=== PATIENT | female | born 1945 | race Hispanic/Latino ===

== ENCOUNTER 2024-11-25 23:55 | Inpatient (IN) | payer SELFPAY ==
[2024-11-25 16:25] VITALS: BP 112/79
[2024-11-25 17:06] LABS: % Basophils 0.5 % (0-2); % Eosinophils 0.1 % (0-6); % Immature Granulocytes 0.4 % (0-0.5); % Lymphocytes 8.7 % (20.5-51.1); % Monocytes 8.7 % (1.7-9.3); % Neutrophils 81.6 % (42.2-75.2); Absolute Basophils 0.1 10^3/uL (0-0.2); Absolute Immature Granulocytes 0.1 10^3/uL (0-0.05); Absolute Lymphocytes 1.8 10^3/uL (1.2-3.4); Absolute Monocytes 1.8 10^3/uL (0.1-0.6); Absolute Neutrophils 16.6 10^3/uL (1.4-6.5); Hematocrit 35.1 % (37.0-47.0); Hemoglobin 11.6 g/dL (12.0-16.0); Mean Corpuscular Hgb 31.1 pg (27.0-31.0); Mean Corpuscular Volume 94.1 fL (81.0-99.0); Mean Platelet Volume 9.8 fL (7.4-10.4); Nucleated Red Blood Cells % 0 %; Platelet Count 256 10^3/uL (130-400); Red Blood Cell Count 3.73 10^6/uL (4.20-5.40); Red Cell Dist. Width 13.2 % (11.5-14.5); White Blood Cell Count 20.3 10^3/uL (4.8-10.8)
[2024-11-25 18:48] VITALS: BMI 28.7
[2024-11-25] MEDS: OMNIPAQUE 50 ML PO (19:00)
[2024-11-25] MEDS: MORPHINE SULFATE 4 MG IV (19:00)
[2024-11-25] MEDS: NSS 1000 IV (19:01)
[2024-11-25 19:08] VITALS: BP 110/53
[2024-11-25 19:24] LABS: Urine Albumin Trace (Neg - Trace); Urine Bilirubin 1+ (Negative); Urine Character Clear (Clear); Urine Color Yellow; Urine Glucose Negative (Negative); Urine Ketone Negative (Negative); Urine Leukocyte Trace (Negative); Urine Nitrite Negative (Negative); Urine Occult Blood 3+ (Negative); Urine Specific Gravity 1.015 (<1.030); Urine Urobilinogen 2+ (Neg - 1+)
[2024-11-25 19:32] LABS: Urine Mucus Moderate
[2024-11-25 19:34] LABS: Urine Calcium Oxalate Crystals Seen
[2024-11-25 19:35] LABS: Urine Bacteria Moderate (Negative)
[2024-11-25 19:40] LABS: ALT (SGPT) 20 U/L (0-35); AST (SGOT) 30 U/L (14-36); Albumin 3.9 g/dl (3.5-5.0); Alkaline Phosphatase 82 U/L (38-126); Blood Urea Nitrogen 19 mg/dl (7-17); Carbon Dioxide 31 mmol/L (22-30); Chloride 93 mmol/L (98-107); Estimated Creatinine Clearance 44 ml/min; Glucose 122 mg/dl (70-99); Potassium 4.2 mmol/L (3.5-5.1); Sodium 132 mmol/L (135-145); Total Bilirubin 1.1 mg/dl (0.2-1.3); Total Protein 6.4 g/dl (6.3-8.2); eGFR 57.31
[2024-11-25 19:41] LABS: Lipase 282 U/L (23-300)
--- NOTE | 2024-11-25 19:54 | ED.GENMED ---
History of Present Illness
<Angelita Avila PA-C - Last Filed: 11/25/24 21:57>
General
Chief Complaint: Abdominal Symptoms
Source: patient and family (Daughter at bed translating)
Exam Limitations: none
Time Seen by Provider: 11/25/24 18:16
Nursing documentation reviewed up to this point in time: agreed with
History of Present Illness
History of Present Illness:
Patient is a 79-year-old female with history hypertension, diverticulitis status post bowel resection presenting to the emergency department with abdominal pain for 3 days. 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
at bedside translate for patient. Patient reports relatively constant pain in her right mid abdomen/umbilicus over the past few days. No radiation of pain into her back or groin. Patient states pain has not necessarily worsened but is not getting
any better. She does report associated nausea and 1 episode of diarrhea. However�patient denies any vomiting, dysuria, fever. She does feel generally tired and with generalized bodyaches. Patient feels that her abdomen is more swollen than at
baseline.
Patient has a past history of an appendectomy and cholecystectomy. Patient reports an anaphylactic reaction to IV contrast dye in the past.
Review of Systems
<Angelita Avila PA-C - Last Filed: 11/25/24 21:57>
Review of Systems
Allergies reviewed?: Yes
All Other Systems: ROS reviewed and negative except as documented in HPI and ROS
Phy Exam
<Angelita Avila PA-C - Last Filed: 11/25/24 21:57>
Physical Exam
Physical Exam:
Vitals: Patient's vital signs are stable. Afebrile
General: Patient is well appearing, no acute distress. Nontoxic appearing
Skin: Warm and dry, no rashes or lesions
Head: Normocephalic, atraumatic
Eyes: Sclera nonicteric. EOMs intact. No nystagmus.
Throat: Protecting airway
Neck: Normal ROM, no cervical spine tenderness, no meningismus
Cardiac: Regular rate and rhythm, no murmurs.
Pulm: Normal respiratory effort, no wheezes, rales, rhonchi heard on exam.
Abdomen: Mildly distended. Abdomen soft. Moderate abdominal tenderness in right mid abdomen with voluntary guarding. No rebound tenderness.
Extremities: No evidence of cyanosis or edema. Palpable DP pulse
Neuro: AAOx3. Grossly intact.
Psychiatric: Normal affect.
Course
<Angelita Avila PA-C - Last Filed: 11/25/24 21:57>
Orders/Labs/Results
Orders:
Orders
11/25/24 16:31
Complete Blood Count/With Diff Urgent
11/25/24 18:37
CT Abd/pel (oral only)-[facility] Only Urgent
Comment:
Reason For Exam: Abdominal pain
0.9% Sodium Chloride 1000 ml [Nss] 1,000 ml IV BOLUS
Iohexol [Omnipaque] See Protocol PO NOW STA
Morphine Sulfate 4 mg IV NOW STA
11/25/24 18:40
Electrocardiogram (*1) Urgent
Reason for Study: Abdominal Pain
EKG- Treatment ONCE
11/25/24 18:58
Comprehensive Metabolic Panel Urgent
Lipase Urgent
11/25/24 19:19
Urinalysis Reflex To Culture Urgent
Date Specimen was Collected: 11/25/24
Time Specimen was Collected: 19:16
Urine Microscopic Reflex Cult Urgent
Urine Culture Urgent
ROXY Source: U
Specimen Description:
Date Specimen was Collected: 11/25/24
Time Specimen was Collected: 19:16
11/25/24 19:49
Lactic Acid Urgent
11/25/24 20:52
COVID-19 Antigen Urgent
Source: Nasal Swab
Influenza A+B Rapid Molecular Urgent
ROXY Source: Nasal Swab
Specimen Description:
11/25/24 21:44
Piperacillin/Tazo 3.375 Gram [Zosyn] 3.375 gram in 50 ml IV NOW
Abnormal Lab Results
11/25/24 11/25/24 11/25/24
16:31 18:58 19:19
WBC 20.3 H 10^3/uL
(4.8-10.8)
RBC 3.73 L 10^6/uL
(4.20-5.40)
Hgb 11.6 L g/dL
(12.0-16.0)
Hct 35.1 L %
(37.0-47.0)
MCH 31.1 H pg
(27.0-31.0)
Abs Immat Gran (auto) 0.1 H 10^3/uL
(0-0.05)
Absolute Neuts (auto) 16.6 H 10^3/uL
(1.4-6.5)
Absolute Monos (auto) 1.8 H 10^3/uL
(0.1-0.6)
Neutrophils % 81.6 H %
(42.2-75.2)
Lymphocytes % 8.7 L %
(20.5-51.1)
Sodium 132 L mmol/L
(135-145)
Chloride 93 L mmol/L
(98-107)
Carbon Dioxide 31 H mmol/L
(22-30)
BUN 19 H mg/dl
(7-17)
Glucose 122 H mg/dl
(70-99)
Ur Occult Blood Reflex 3+ A
(Negative)
Urine Bilirubin 1+ A
(Negative)
Urine Urobilinogen 2+ A
(Neg - 1+)
Leukocyte Esterase Rfl Trace A
(Negative)
Urine RBC 3-6 A /HPF
(0-2)
Urine Bacteria (Reflex) Moderate A
(Negative)
11/25/24 16:31
11/25/24 18:58
Vital Signs
Initial and Last Documented VS:
Initial Vital Signs
Temp Pulse Resp BP Pulse Ox
97.9 F 93 18 112/79 99
11/25/24 16:25 11/25/24 16:25 11/25/24 16:25 11/25/24 16:25 11/25/24 16:25
Last Documented Vital Signs
Temp Pulse Resp BP Pulse Ox
97.9 F 89 16 116/52 90
11/25/24 16:25 11/25/24 21:23 11/25/24 21:23 11/25/24 21:23 11/25/24 21:23
<Valencia Funes, DO - Last Filed: 11/25/24 21:53>
Orders/Labs/Results
Orders:
Orders
11/25/24 16:31
Complete Blood Count/With Diff Urgent
11/25/24 18:37
CT Abd/pel (oral only)-[facility] Only Urgent
Comment:
Reason For Exam: Abdominal pain
0.9% Sodium Chloride 1000 ml [Nss] 1,000 ml IV BOLUS
Iohexol [Omnipaque] See Protocol PO NOW STA
Morphine Sulfate 4 mg IV NOW STA
11/25/24 18:40
Electrocardiogram (*1) Urgent
Reason for Study: Abdominal Pain
EKG- Treatment ONCE
11/25/24 18:58
Comprehensive Metabolic Panel Urgent
Lipase Urgent
11/25/24 19:19
Urinalysis Reflex To Culture Urgent
Date Specimen was Collected: 11/25/24
Time Specimen was Collected: 19:16
Urine Microscopic Reflex Cult Urgent
Urine Culture Urgent
ROXY Source: U
Specimen Description:
Date Specimen was Collected: 11/25/24
Time Specimen was Collected: 19:16
11/25/24 19:49
Lactic Acid Urgent
11/25/24 20:52
COVID-19 Antigen Urgent
Source: Nasal Swab
Influenza A+B Rapid Molecular Urgent
ROXY Source: Nasal Swab
Specimen Description:
11/25/24 21:44
Piperacillin/Tazo 3.375 Gram [Zosyn] 3.375 gram in 50 ml IV NOW
Abnormal Lab Results
11/25/24 11/25/24 11/25/24
16:31 18:58 19:19
WBC 20.3 H 10^3/uL
(4.8-10.8)
RBC 3.73 L 10^6/uL
(4.20-5.40)
Hgb 11.6 L g/dL
(12.0-16.0)
Hct 35.1 L %
(37.0-47.0)
MCH 31.1 H pg
(27.0-31.0)
Abs Immat Gran (auto) 0.1 H 10^3/uL
(0-0.05)
Absolute Neuts (auto) 16.6 H 10^3/uL
(1.4-6.5)
Absolute Monos (auto) 1.8 H 10^3/uL
(0.1-0.6)
Neutrophils % 81.6 H %
(42.2-75.2)
Lymphocytes % 8.7 L %
(20.5-51.1)
Sodium 132 L mmol/L
(135-145)
Chloride 93 L mmol/L
(98-107)
Carbon Dioxide 31 H mmol/L
(22-30)
BUN 19 H mg/dl
(7-17)
Glucose 122 H mg/dl
(70-99)
Ur Occult Blood Reflex 3+ A
(Negative)
Urine Bilirubin 1+ A
(Negative)
Urine Urobilinogen 2+ A
(Neg - 1+)
Leukocyte Esterase Rfl Trace A
(Negative)
Urine RBC 3-6 A /HPF
(0-2)
Urine Bacteria (Reflex) Moderate A
(Negative)
11/25/24 16:31
11/25/24 18:58
Vital Signs
Initial and Last Documented VS:
Initial Vital Signs
Temp Pulse Resp BP Pulse Ox
97.9 F 93 18 112/79 99
11/25/24 16:25 11/25/24 16:25 11/25/24 16:25 11/25/24 16:25 11/25/24 16:25
Last Documented Vital Signs
Temp Pulse Resp BP Pulse Ox
97.9 F 89 16 116/52 90
11/25/24 16:25 11/25/24 21:23 11/25/24 21:23 11/25/24 21:23 11/25/24 21:23
<Angelita Avila PA-C - Last Filed: 11/25/24 21:57>
MDM/Problems Addressed
Differential Diagnosis Includes:
Not limited to: Diverticulitis, pancreatitis, bowel obstruction, cholangitis, bowel obstruction/perforation, ischemic bowel, etc.
MDM/Problems Addressed:
79-year-old female with 3 days of right mid abdominal pain associated with nausea and bodyaches. No fevers or vomiting. No dysuria. Patient with remote history of bowel resection due to diverticulitis, appendectomy, cholecystectomy. Vital
stable. Patient is afebrile. On exam abdomen is mildly distended although soft with moderate tenderness in right mid abdomen. There is voluntary guarding. Patient otherwise nontoxic-appearing and perfusing well. Labs initiated in triage. CBC
resulted in significant for leukocytosis of 20.3. CMP pending. Will add on lactic to rule out ischemic bowel. Will check urinalysis. Patient does have anaphylactic reaction to IV contrast�will check CT abdomen with p.o. contrast only. Will give
pain control and IV fluids. Will closely monitor and reassess.
Update: Urine without clear signs of infection. And reassess patient at bedside and she has improvement pain following morphine. CT pending.
Update 9:45 PM: CT report reviewed which shows severe acute diverticulitis of terminal ileum with perforated diverticulum, small amount of extraluminal air and severe ileal wall thickening. Will start patient on Zosyn. Patient hemodynamically
stable however she will require admission to the hospital for IV antibiotics, general surgery consult. Patient accepted to hospitalist service in stable condition. General surgery aware and will see in AM.
Chronic conditions affecting care:
Diverticulitis, hypertension
Acute Exacerbation and/or Progression of Chronic Illness:
Acute diverticulitis
<Angelita Avila PA-C - Last Filed: 11/25/24 21:57>
*Radiology
Radiology exam reviewed: radiology read reviewed
*Pulse Oximetry
Patient hypoxic: no
*EKG
Interpreted by ED Provider?: NA
*Lead Sales Consultant Interpretation
Rate: Lead Sales Consultant- N/A
*Critical Care Note
Total Time (30-74mins, 75-104mins- exclusive of procedures): Not Applicable
<Angelita Avila PA-C - Last Filed: 11/25/24 21:57>
Patient Management
Discussion with other providers: Hospitalist and Assembler For Puller Over Machine (General Surgery)
Escalation/DeEscalation of care consider admission/obs:
Admit indicated
ED Attending Note
<Angelita Avila PA-C - Last Filed: 11/25/24 21:57>
-
Portions of this chart may have been created with voice recognition software.� Occasional wrong word or��sound alike� substitutions may have occurred due to the inherent limitations of voice recognition software.
<Valencia Funes DO - Last Filed: 11/25/24 21:53>
ED Attending Note
Patient seen and examined by attending physician: Yes
I performed the substantive portion of visit, reviewed & personally made and approve the management plan that is documented in note by myself or GEOVANNA.: Yes
I performed a history and physical exam of patient and discussed management with resident, I reviewed resident's note and agree with documented findings and plan of care.: Yes
ED Attending Note:
79-year-old female with prior history of appendectomy and cholecystectomy presenting for generalized abdominal pain with associated nausea. Patient arrives with daughter, notes that symptoms have been ongoing for 3 days. Also generalized aches and
pains to her body. No reported fever or sick contacts. Denies any vomiting. Denies any urinary complaints. Does also note history of diverticulitis status post bowel resection. Denies any chest pain or difficulty breathing. Denies cough.
Vital signs are normal.
On exam, patient is nontoxic, no acute distress. No significant distention to the abdomen, however generalized tenderness, without rebound or guarding. Without concern for appendicitis or cholecystitis given prior surgical history. Bowel
pathology is a consideration given prior history. For this reason we will proceed with CT imaging and laboratory analysis. Patient has contrast allergy so will administer oral contrast. Patient also notes generalized aches and pains, so we will
send viral panel.
Patient with significant leukocytosis. Pending CT imaging.
21:45 -CT shows severe diverticulitis with perforated diverticulum. Lactic acid within normal limits. Will start on broad-spectrum antibiotics. Plan for admission with GI consultation. Patient at this time is otherwise hemodynamically stable
Discharge Plan
Departure
Patient Disposition: Admit
Date of Disposition: 11/25/24
Time of Disposition: 21:45
Presentation/result/management discussed w/ accepting MD/DO: Hospitalist
Discharge Problem:
Acute diverticulitis
Referrals:
NONE,* [Family Provider] -
Interventions
Interventions:
*Risk Screen - Suicide Last Done: 11/25/24 16:25
*General Assessment Last Done: 11/25/24 16:25
*Neglect/Abuse Screening Last Done: 11/25/24 16:25
*ED COVID-19 Vaccine History Last Done: 11/25/24 18:50
DE-Frlvvw-Kcjqcraoyn Assessment Last Done: 11/25/24 18:50
Discharge Date and Time
Print Language: PORTUGUESE
[2024-11-25 21:18] LABS: COVID-19 Antigen Negative (Negative)
[2024-11-25 21:23] VITALS: BP 116/52
[2024-11-25] MEDS: ZOSYN 50 IV (21:51)
--- NOTE | 2024-11-25 23:28 | HPS.HSE ---
Family Physician
-
Family Physician: * NONE
Chief Complaint
-
Abd Pain
History of Present Illness
Patient is a 79y F with PMH significant for ASCVD, hypertension and diverticular disease who presents to ED complaining of abdominal pain. History obtained from patient and family with family serving as legal summer intern. Patient developed abdominal
discomfort about 3 days ago. Reports crampy abdominal pain - mostly R sided. Some soft stools, but no diarrhea. No blood in stools. No fevers / chills. Patient has felt progressively more fatigued, poor appetite and diffuse 'achiness'. Patient
states that her last BM was around 2 PM today and was soft, non-bloody but not liquid.
Patient notes prior history of diverticular disease requiring partial bowel resection in the past in [place].
She denies any fevers / chills.
Medical History
Past Medical History
Past Medical History: Reports Other
Additional Past Medical History:
ASCVD
Hypertension
DM-II
Dyslipidemia
Diverticular Disease
Anxiety / Depression
Past Surgical History: Reports Other
Additional Past Surgical History:
Carotid Stent
Partial Bowel Resection
Cholecystectomy
Social History
Tobacco: Non-smoker
Alcohol: Occasional
Drug: None
Family History
Family History: Not pertinent
Allergies / Home Medications
Allergies reflects when Allergies were last updated in [facility].
Home Medications with original date entered in [facility]
Allergy/Medication List:
Allergies
Allergy/AdvReac Type Severity Reaction Status Date / Time
ciprofloxacin [From Cipro] Allergy Unknown Verified 11/25/24 23:02
Iodinated Contrast Media Allergy Unknown Verified 11/25/24 23:02
Home Medications
Ciprofibrate 100 mg PO DAILY 11/25/24
alprazolam 0.5 mg tablet 0.5 mg PO HS 11/25/24
amlodipine 2.5 mg tablet 2.5 mg PO DAILY 11/25/24
aspirin 100 mg PO DAILY 11/25/24
clopidogrel 75 mg tablet 75 mg PO DAILY 11/25/24
escitalopram oxalate 20 mg tablet 20 mg PO DAILY 11/25/24
ezetimibe 10 mg-rosuvastatin 10 mg tablet 1 tab PO HS 11/25/24
metformin 500 mg tablet 500 mg PO HS 11/25/24
rivastigmine 9.5 mg/24 hour transdermal patch 9.5 mg transdermal HS 11/25/24
valsartan 160 mg-hydrochlorothiazide 12.5 mg tablet (Diovan HCT) 1 tab PO DAILY 11/25/24
Review of Systems
-
History Source: Patient
A 12 point ROS was completed and negative except as noted: Yes
Constitutional: Reports Fatigue; Denies Fever or Chills
EENT: Denies Sore Throat
Respiratory: Denies Cough or Trouble Breathing
Cardiac: Denies Chest Pain or Palpitations
Abdomen/GI: Reports Abdominal Pain and Diarrhea; Denies Nausea, Vomiting or Bloody Stools
: Denies Dysuria, Frequency or Flank Pain
Musculoskeletal: Denies Joint Pain or Edema
Neurological: Denies Dizzy or Headache
Psych: Denies Depression or Anxiety
Physical Exam
Vital Signs
Vital Signs
Temp Pulse Resp BP Pulse Ox
97.9 F 89 16 116/52 90
11/25/24 16:25 11/25/24 21:23 11/25/24 21:23 11/25/24 21:23 11/25/24 21:23
Physical Exam
General: Other (79y F in mild distress due to abdominal pain.)
HEENT: Moist mucous membranes and PERRLA
Respiratory: Clear; No Wheezes, Rales or Rhonchi
Cardiac: S1/S2 and Regular Rhythm; No Murmur
GI: Soft and Other (Bowel sounds are present. Pos tenderness with voluntary guarding in the R abdomen. No rebound.)
Musculoskeletal: No Clubbing, No Cyanosis and No Edema
Neuro: AO x 3
Laboratory Results
-
11/25/24 16:31
11/25/24 18:58
Laboratory Results
Lactic Acid 1.0 mmol/L (0.7-2.0) 11/25/24 19:49
Total Bilirubin 1.1 mg/dl (0.2-1.3) 11/25/24 18:58
AST 30 U/L (14-36) 11/25/24 18:58
ALT 20 U/L (0-35) 11/25/24 18:58
Alkaline Phosphatase 82 U/L (38-126) 11/25/24 18:58
Lipase 282 U/L (23-300) 11/25/24 18:58
Impression/Plan
-
A/P: Patient is a 79y F with PMH significant for ASCVD, HTN and diverticular disease who presents to ED complaining of abdominal pain x 3 days.
Acute Diverticulitis
- Admit for further evaluation and treatment.
- CT scan done in the ED shows severe diverticulitis in the terminal ileum with some extraluminal air / microperf.
- IV abx, pain control, IVFs, supportive care.
- Surgery evaluation for additional recommendations.
- Monitor for any new / worsening symptoms.
Benign Hypertension
- Stable. Hold PO medications acutely.
ASCVD
- Stable. No prior PA / stroke.
- History of carotid stenting.
- Continue ASA daily with known intravascular stent.
DM-II
- Stable. Hold metformin acutely.
- Follow glucose and cover with SSI as needed.
- Update A1C.
DVT Prophylaxis: SCDs
Code Status: Full
[2024-11-25 23:39] VITALS: BP 108/61
[2024-11-26] VITALS (8 sets, daily range): BP systolic 108–138; BP diastolic 51–73; BMI 28.4
--- NOTE | 2024-11-26 01:10 | PTCARENOTE ---
Pt received from ED at 0100. Pt pleasant, AAXO, VVS, and able to ambulate into room with assistance. Daughter at bedside, assisted with admission questions as pt is only Ghanaian speaking. Pt absent of pain at this time. Pt receptive to room and
call cox. Pt bed in lowest position and call cox within reach. Pt educated on importance of call cox usage, pt relays understanding and cooperation. Will continue with current plan of care.
[2024-11-26] MEDS: NSS 1000 IV ×2 (02:05→10:45)
[2024-11-26] MEDS: ZOSYN 50 IV ×4 (05:07→23:15)
[2024-11-26 05:31] LABS: Glucose - Point of Care 96 mg/dl (70-99)
[2024-11-26 07:24] LABS: Hematocrit 33.1 % (37.0-47.0); Hemoglobin 10.9 g/dL (12.0-16.0); Mean Corp Hgb Conc. 32.9 g/dL (33.0-37.0); Mean Corpuscular Hgb 30.5 pg (27.0-31.0); Mean Corpuscular Volume 92.7 fL (81.0-99.0); Platelet Count 226 10^3/uL (130-400); Red Blood Cell Count 3.57 10^6/uL (4.20-5.40); Red Cell Dist. Width 13.2 % (11.5-14.5); White Blood Cell Count 12.8 10^3/uL (4.8-10.8)
[2024-11-26 08:02] LABS: Blood Urea Nitrogen 13 mg/dl (7-17); Carbon Dioxide 25 mmol/L (22-30); Chloride 100 mmol/L (98-107); Estimated Creatinine Clearance 73 ml/min; Glucose 108 mg/dl (70-99); Sodium 135 mmol/L (135-145); eGFR > 60.00
[2024-11-26 08:18] LABS: Glucose - Point of Care 106 mg/dl (70-99)
[2024-11-26] MEDS: NOVOLOG FLEXPEN-LOW RESISTANCE SC ×2 (08:24→16:40)
[2024-11-26] MEDS: PROTONIX IV 40 MG IV (08:45)
[2024-11-26] MEDS: LOW STRENGTH ASPIRIN 81 MG PO (08:45)
[2024-11-26 09:45] LABS: Glycohemoglobin (HgbA1c) 5.6 % (4.0-5.6)
--- NOTE | 2024-11-26 10:50 | PN.CDI ---
CDI
- -
CDI:
Physician Documentation Request
Admit Date: 11/25/24 23:55
Dear Doctor Ruy,
Please review the following and provide your response in the progress notes.
Clinical Indicators:
H+P, 11/25
#Acute Diverticulitis
#...- CT scan done in the ED shows severe diverticulitis in the terminal ileum
#...with some extraluminal air / microperf.
Initial Vital Signs
Temp Pulse Resp BP Pulse Ox
97.9 F 93 18 112/79 99
11/25/24 16:25 11/25/24 16:25 11/25/24 16:25 11/25/24 16:25 11/25/24 16:25
Laboratory Tests
11/25/24 11/26/24
16:31 07:04
WBC 20.3 H 12.8 H
Based on the above and your clinical assessment, please clarify which of the following most accurately describes the status of the patient's infection:
Sepsis, POA
Localized Infection Only, Without Systemic Illness
- indicate the site/source, such as UTI, pneumonia etc.
Other(please specify)
Sepsis
- Systemic manifestations of infection, with 2 or more SIRS criteria which include:
- Fever >100.4 degrees F or hypothermia < 96.8 degrees F
- Leukocytosis - WBC > 12,000 or leukopenia - WBC < 4,000 or > 10% bands
- Tachycardia > 90 beats per minute
- Tachypnea - RR > 20 breaths per minute or PaCO2 , 32mmHg
Source: Merck Manual 2013
- Indicate the known or suspected underlying infection, such as UTI, pneumonia or cellulitis
Severe Sepsis
- Sepsis with associated acute organ dysfunction, such as renal or respiratory failure
- Documentation should indicate the association between the sepsis and the organ dysfunction
Use of terms such as suspected, likely, concern for, or probable (associated with a specific diagnosis that is being evaluated, monitored, or treated as if it exists) are acceptable and can be coded in the inpatient setting, when documented at the
time of discharge.
Thank you,
Zuly Sanchez RN BSN CCDS
CDI Specialist
please contact via tiger text
Please use your independent medical judgment in providing your response.
[2024-11-26 11:20] LABS: Glucose - Point of Care 184 mg/dl (70-99)
--- NOTE | 2024-11-26 11:28 | CON.GS ---
Addendum entered and electronically signed by Lalit Abad MD 11/26/24 16:23:
I saw and examined the patient.
The Bark Press Operator's note was reviewed and I agree with the note.
Comment: Feels improved today, pain resolved except when palpated, on exam mild ttp to RLQ without r/r/g, denies n/v, she is hungry. WBC improving, fever to 101F today noted. CT with distal ileum diverticulitis with likely contained perforation;
will trial expectant mgmt with IV abx. OK for CLD
Original Note:
Consultation
-
Date/Time Consultation Requested: 11/26/2024 0054
Requesting Provider: Braden
Medical History
-
Chief Complaint: Abdominal pain
History of Present Illness:
Ms Diane Burroughs is a 79 yo Mongolian speaking female with a h/o cholecystectomy and sigmoidectomy (for diverticular dz) in [place], NIDDM and CAD who presented through the ED with significant RLQ pain worsening over the past 3 days with
increasing fatigue. She was passing soft stools up until today when she had an episode of diarrhea. She denied fevers or chills at home but has been febrile to 101.1 since presentation. She denies nausea or vomiting and notes that she feels very
hungry. Since presentation, she has felt a significant amount of relief in pain.
Past Medical History
Past Medical History: CAD, Diverticulitis and NIDDM
Past Surgical History: Bowel Resection (sigmoidectomy) and Cholecystectomy
Social History
Tobacco: Non-Smoker
Alcohol: Occasional
Family History
Family History: Reviewed & Not Pertinent
Allergies / Home Medications
Allergy/AdvReac Type Severity Reaction Status Date / Time
ciprofloxacin [From Cipro] Allergy Unknown Verified 11/25/24 23:02
Iodinated Contrast Media Allergy Unknown Verified 11/25/24 23:02
�Medication �Instructions �Recorded �Confirmed �Type
Ciprofibrate 100 mg PO DAILY 11/25/24 11/25/24 History
alprazolam 0.5 mg tablet 0.5 mg PO HS 11/25/24 11/25/24 History
amlodipine 2.5 mg tablet 2.5 mg PO DAILY 11/25/24 11/25/24 History
aspirin 100 mg PO DAILY 11/25/24 11/25/24 History
clopidogrel 75 mg tablet 75 mg PO DAILY 11/25/24 11/25/24 History
escitalopram oxalate 20 mg tablet 20 mg PO DAILY 11/25/24 11/25/24 History
ezetimibe 10 mg-rosuvastatin 10 mg 1 tab PO HS 11/25/24 11/25/24 History
tablet
metformin 500 mg tablet 500 mg PO HS 11/25/24 11/25/24 History
rivastigmine 9.5 mg/24 hour 9.5 mg transdermal HS 11/25/24 11/25/24 History
transdermal patch
valsartan 160 1 tab PO DAILY 11/25/24 11/25/24 History
mg-hydrochlorothiazide 12.5 mg
tablet (Diovan HCT)
Review of Systems
-
Unable to obtain full review of systems at this time due to: Language Barrier (family interpreting as per patient request)
History Source: Patient and Family
All other systems: Negative unless noted
A 10 point review of systems was completed, and was negative except as per HPI.
Physical Exam
Vital Signs
Temp Pulse Resp BP Pulse Ox
101.1 F H 93 15 125/61 93
11/26/24 08:26 11/26/24 08:26 11/26/24 08:26 11/26/24 08:26 11/26/24 08:26
11/25/24 11/26/24 11/27/24
06:59 06:59 06:59
Actual Weight 72.717 kg
Body Mass Index (BMI) 28.4
Lab Results
11/26/24 07:04
11/26/24 07:04
WBC 12.8 10^3/uL (4.8-10.8) H 11/26/24 07:04
Hgb 10.9 g/dL (12.0-16.0) L 11/26/24 07:04
Hct 33.1 % (37.0-47.0) L 11/26/24 07:04
Plt Count 226 10^3/uL (130-400) 11/26/24 07:04
Abs Immat Gran (auto) 0.1 10^3/uL (0-0.05) H 11/25/24 16:31
Neutrophils % 81.6 % (42.2-75.2) H 11/25/24 16:31
Physical Exam
General: Well Developed and Well Nourished
HEENT: Moist Mucous Membranes
Respiratory: Non Labored Respirations
GI: Soft, Non Distended and Tender (RLQ)
Skin: Warm and Dry
Neuro: Awake, Alert and AO x 3
Psych: Calm
Assessment / Plan
-
Ms Diane Burroughs is a 79 yo Mongolian speaking female with a h/o cholecystectomy and sigmoidectomy (for diverticular dz) in [place], NIDDM and CAD (on plavix) who presented through the ED with significant RLQ pain worsening over the past 3 days
with increasing fatigue. She was passing soft stools up until today when she had an episode of diarrhea, no n/v. Febrile to 101.1 since presentation. VSS. Leukocytosis of 17.8 on presentation, now down to 14.7 on antibiotics. Pain much improved
since admission.
CT imaging reviewed with concern for diverticulitis in the TI with small amount of extraluminal air where the ileal wall is thickened. No abscess present.
Exam reassuring with improvement in labs on ABX. Discussed surgical vs medical options with patient.
--Continue IV abx and follow closely for improvement
--Trend labs
--Hold Plavix in case surgery is needed, ok to continue PO ASA
--Ok for trial of clears
--Medical management as per primary team
May need surgical resection of the affected area if condition declines, will follow closely.
[2024-11-26] MEDS: NOVOLOG FLEXPEN-LOW RESISTANCE 1 UNITS SC (12:20)
--- NOTE | 2024-11-26 14:10 | W.PN.HOSP.TC ---
Today's Communication/Plan
-
CW ABX
Diet per surgery
Assessment / Plan
Assessment / Plan
A/P: Patient is a 79y F with PMH significant for ASCVD, HTN and diverticular disease who presents to ED complaining of abdominal pain x 3 days.
Acute Diverticulitis
- CT scan done in the ED shows severe diverticulitis in the terminal ileum with some extraluminal air / microperf.
- Improving pain and WBC -cw IV abx, pain control, IVFs, supportive care.
- Appt Surgery evaluation
- Monitor for any new / worsening symptoms.
- Pt hasnt had colo in many years. Would need one after recovering from this attack.
Benign Hypertension
- Stable. cw PO medications .
ASCVD
- Stable. No prior CA / stroke.
- History of carotid stenting.
- Continue ASA daily with known intravascular stent.
DM-II
- Stable. Hold metformin acutely.
- Follow glucose and cover with SSI as needed.
- Update A1C.
DVT Prophylaxis: SCDs
Code Status: Full
Anticipated Discharge: > 48 hours
Subjective/Interval History
-
Date of Service: November 26, 2024
History today is from patient and daughter over the phone is the fish conservationist.
Abdominal pain is improving but still not gone. She had some loose stools but she came to the ER. No nausea vomiting tolerating the clears.
No fever chills.
Her colon resection was very more like 20+ years ago in [place].
She has been here for 4 months and been pretty healthy, going to the gym and all. Her symptoms are rather acute onset.
Chronically she has intermittent abdo bloating sensation but no weight loss, GERD, dysphagia.No hx of peptic ulcer dz, IBD.
Objective Data
-
Labs:
Laboratory Results
11/26/24
07:04
WBC 12.8 H
Hgb 10.9 L
Hct 33.1 L
Plt Count 226
Sodium 135
Potassium 4.0
Chloride 100
Carbon Dioxide 25
BUN 13
Creatinine 0.5 L
Glucose 108 H
Calcium 9.0
Vital Signs:
Vital Signs
Temp Pulse Resp BP Pulse Ox
98.8 F 84 15 125/61 93
11/26/24 11:53 11/26/24 11:53 11/26/24 11:53 11/26/24 08:26 11/26/24 11:53
Review of Systems
-
Respiratory: Denies Trouble Breathing
Cardiac: Denies Chest Pain
Neuro: Denies Dizzy
Physical Exam
-
General: Comfortable
Respiratory: Negative Non Labored Respirations or Accessory Resp Muscle Use
Cardiac: Regular Rhythm and S1/S2; Negative Tachycardic
GI: Soft, Nondistended, Normal Bowel Sounds and Tender (RLQ but no rebound or guarding)
Neuro: AO x 3
Data Reviewed
-
Labs: Labs Reviewed by me
[2024-11-26] MEDS: LEXAPRO 20 MG PO (15:21)
[2024-11-26 16:39] LABS: Glucose - Point of Care 93 mg/dl (70-99)
[2024-11-26] MEDS: XANAX 0.5 MG PO (21:10)
[2024-11-26] MEDS: EXELON PATCH 9.5 MG TRANSDERM (21:11)
[2024-11-26 21:23] LABS: Glucose - Point of Care 119 mg/dl (70-99)
[2024-11-27] VITALS (7 sets, daily range): BP systolic 124–164; BP diastolic 66–83
[2024-11-27] MEDS: NSS 1000 IV ×2 (00:57→15:13)
[2024-11-27] MEDS: ZOSYN 50 IV ×4 (05:12→23:29)
[2024-11-27 07:22] LABS: Hematocrit 34.2 % (37.0-47.0); Hemoglobin 11.5 g/dL (12.0-16.0); Mean Corp Hgb Conc. 33.6 g/dL (33.0-37.0); Mean Corpuscular Hgb 31.4 pg (27.0-31.0); Mean Corpuscular Volume 93.4 fL (81.0-99.0); Mean Platelet Volume 10.2 fL (7.4-10.4); Platelet Count 280 10^3/uL (130-400); Red Blood Cell Count 3.66 10^6/uL (4.20-5.40); White Blood Cell Count 7.2 10^3/uL (4.8-10.8)
[2024-11-27 07:38] LABS: Glucose - Point of Care 95 mg/dl (70-99)
[2024-11-27] MEDS: NOVOLOG FLEXPEN-LOW RESISTANCE SC ×3 (07:40→16:51)
[2024-11-27 08:01] LABS: Blood Urea Nitrogen 7 mg/dl (7-17); Calcium 9.3 mg/dl (8.4-10.2); Carbon Dioxide 27 mmol/L (22-30); Chloride 105 mmol/L (98-107); Estimated Creatinine Clearance 73 ml/min; Glucose 98 mg/dl (70-99); Sodium 142 mmol/L (135-145); eGFR > 60.00
[2024-11-27] MEDS: NORVASC 2.5 MG PO (08:51)
[2024-11-27] MEDS: LEXAPRO 20 MG PO (08:52)
[2024-11-27] MEDS: LOW STRENGTH ASPIRIN 81 MG PO (08:52)
[2024-11-27] MEDS: PROTONIX IV 40 MG IV (08:52)
--- NOTE | 2024-11-27 09:51 | W.PN.HOSP.TC ---
Addendum entered and electronically signed by Adi Redmond MD 11/27/24 16:38:
Sepsis was present on admission.
Original Note:
Today's Communication/Plan
-
Increase to full liquid diet
Continue with antibiotics
Assessment / Plan
Assessment / Plan
A/P: Patient is a 79y F with PMH significant for ASCVD, HTN and diverticular disease who presents to ED complaining of abdominal pain x 3 days.
Acute right-sided diverticulitis
- CT scan done in the ED shows severe diverticulitis in the terminal ileum with some extraluminal air / microperf.
-Continued improvement with pain and normalized WBC -cw IV abx, pain control
- Appt Surgery evaluation
- Monitor for any new / worsening symptoms.
- Pt hasnt had colo in many years. Would need one after recovering from this attack. This was communicated with the patient and the daughter at bedside today
-Increase the diet to full liquid diet.
Benign Hypertension
- Stable. cw PO medications .
ASCVD
- Stable. No prior [place] / stroke.
- History of carotid stenting.
- Continue ASA daily with known intravascular stent.
DM-II
- Stable. Hold metformin acutely.
- Follow glucose and cover with SSI as needed.
- Update A1C.
DVT Prophylaxis: SCDs
Code Status: Full
DC when okay from colorectal surgery standpoint
Anticipated Discharge: Within 24 hours
Subjective/Interval History
-
Date of Service: November 27, 2024
Feels abdominal pain has been improving and much better today.
Denies any nausea vomiting. No fever or chills.
Had some loose stools.
Daughter at bedside who is the interpreter deaf.
Objective Data
-
Labs:
Laboratory Results
11/27/24
06:29
WBC 7.2
Hgb 11.5 L
Hct 34.2 L
Plt Count 280 D
Sodium 142
Potassium 4.0
Chloride 105
Carbon Dioxide 27
BUN 7
Creatinine 0.5 L
Glucose 98
Calcium 9.3
Vital Signs:
Vital Signs
Temp Pulse Resp BP Pulse Ox
98.1 F 88 18 158/76 95
11/27/24 07:35 11/27/24 07:35 11/27/24 07:35 11/27/24 08:51 11/27/24 08:00
I&O
11/26/24 11/27/24 11/28/24
06:59 06:59 06:59
Intake Total 240 / 240
Balance 240 / 240
Review of Systems
-
Respiratory: Denies Trouble Breathing
Cardiac: Denies Chest Pain
Neuro: Denies Dizzy
Physical Exam
-
General: Comfortable
Respiratory: Clear to Auscultation and Non Labored Respirations; Negative Accessory Resp Muscle Use
Cardiac: Regular Rhythm and S1/S2; Negative Tachycardic
GI: Soft, Nondistended, Normal Bowel Sounds and Tender (Mild discomfort in the right lower quadrant without rebound guarding or rigidity.)
Neuro: AO x 3
Data Reviewed
-
Labs: Labs Reviewed by me
[2024-11-27 11:46] LABS: Glucose - Point of Care 109 mg/dl (70-99)
--- NOTE | 2024-11-27 14:21 | W.PN.GS2 ---
Addendum entered and electronically signed by Lalit Abad MD 11/27/24 15:24:
I saw and examined the patient.
The Industrial Electrician Journeyman's note was reviewed and I agree with the note.
Comment: improving, afvss, wbc normalized, no complaints other than wanting to go home, exam nt/nd, adv to lrd, cont abx, possible dc tomorrow
Original Note:
Today's Communication / Plan
-
LRD
Continue ABX
Assessment / Plan
-
79 yo Wolof speaking female with a h/o cholecystectomy and sigmoidectomy (for diverticular dz) in [place], NIDDM and CAD (on plavix LD 11/25) who presented through the ED with significant RLQ pain worsening over the past 3 days with increasing
fatigue.
CT imaging reviewed with concern for diverticulitis in the TI with small amount of extraluminal air where the ileal wall is thickened. No abscess present.
Leukocytosis resolved on IV abx
Exams improving with resolution of pain
Afebrile >24, VSS
--Continue IV abx and follow closely for improvement
--Trend labs
--Tolerating FLD, will advance to LRD for dinner and follow
--Continue to hold Plavix in case surgery is needed although this is less likely given her improvement on medical therapy, ok to continue PO ASA
--Medical management as per primary team
If continues to improve, anticipate will be able to d/c tomorrow on PO abx
Subjective Data
-
Date of Service: November 27, 2024
Patient seen and examined at bedside with Dr. Abad. Denies pain. Denies n/v. Tolerating dietary advancements and eager to have more food. No further fevers. Daughter interpreting as per patient's request.
Objective Data
-
Intake and Output
11/26/24 11/27/24 11/28/24
06:59 06:59 06:59
Intake Total 240 / 240
Balance 240 / 240
Intake:
Oral fluids 240 / 240
Other:
Number of approximated MODERATE 3
amounts of urine
Vital Signs
Temp Pulse Resp BP Pulse Ox
98.0 F 77 18 151/66 96
11/27/24 11:16 11/27/24 11:16 11/27/24 11:16 11/27/24 11:16 11/27/24 11:16
Lab Results
11/27/24 06:29
11/27/24 06:29
Calcium 9.3 mg/dl (8.4-10.2) 11/27/24 06:29
Total Bilirubin 1.1 mg/dl (0.2-1.3) 11/25/24 18:58
AST 30 U/L (14-36) 11/25/24 18:58
ALT 20 U/L (0-35) 11/25/24 18:58
Alkaline Phosphatase 82 U/L (38-126) 11/25/24 18:58
Total Protein 6.4 g/dl (6.3-8.2) 11/25/24 18:58
Albumin 3.9 g/dl (3.5-5.0) 11/25/24 18:58
Physical Exam
-
NAD
ABD soft, nt, nd
Patient has a raza catheter: No
Patient has a central line: No
--- NOTE | 2024-11-27 15:01 | CM ---
Met patient at bedside.
Left message with Zee MOON
IA obtained by daughter Ana via phone
Patient visiting daughter from [place], Persian speaking
Daughter states patient has travel insurance and they need med record with diagnosis and treatment receiving.
Lives in [place] in a 1 story home, no steps
PLOF: ambulates without AD, drives
Denies DME
Denies HH/Rehab
PCP: Lilian Brody (in [place])
[facility]
PLAN: home with daughter, anticipate no needs
daughter to transport
[2024-11-27 16:49] LABS: Glucose - Point of Care 88 mg/dl (70-99)
[2024-11-27] MEDS: XANAX 0.5 MG PO (21:24)
[2024-11-27] MEDS: EXELON PATCH 9.5 MG TRANSDERM (21:24)
[2024-11-27 21:26] LABS: Glucose - Point of Care 122 mg/dl (70-99)
[2024-11-28 03:00] VITALS: BP 153/84
[2024-11-28] MEDS: ZOSYN 50 IV (05:10)
[2024-11-28 07:46] VITALS: BP 129/80
[2024-11-28 07:46] LABS: Hematocrit 36.2 % (37.0-47.0); Hemoglobin 12.3 g/dL (12.0-16.0); Mean Corpuscular Hgb 30.9 pg (27.0-31.0); Mean Platelet Volume 9.6 fL (7.4-10.4); Platelet Count 332 10^3/uL (130-400); Red Blood Cell Count 3.98 10^6/uL (4.20-5.40); Red Cell Dist. Width 12.9 % (11.5-14.5); White Blood Cell Count 6.9 10^3/uL (4.8-10.8)
[2024-11-28 07:57] VITALS: BP 179/81
[2024-11-28 07:58] LABS: Glucose - Point of Care 114 mg/dl (70-99)
[2024-11-28] MEDS: NOVOLOG FLEXPEN-LOW RESISTANCE SC (07:58)
[2024-11-28] MEDS: LOW STRENGTH ASPIRIN 81 MG PO (07:59)
[2024-11-28] MEDS: NORVASC 2.5 MG PO (07:59)
[2024-11-28] MEDS: PROTONIX IV 40 MG IV (07:59)
[2024-11-28] MEDS: LEXAPRO 20 MG PO (07:59)
[2024-11-28 08:32] LABS: Blood Urea Nitrogen 9 mg/dl (7-17); Calcium 9.7 mg/dl (8.4-10.2); Carbon Dioxide 25 mmol/L (22-30); Chloride 105 mmol/L (98-107); Estimated Creatinine Clearance 73 ml/min; Glucose 108 mg/dl (70-99); Potassium 3.8 mmol/L (3.5-5.1); Sodium 140 mmol/L (135-145); eGFR > 60.00
[2024-11-28 09:17] LABS: Glucose - Point of Care 173 mg/dl (70-99)
--- NOTE | 2024-11-28 10:23 | W.PN.GS2 ---
Today's Communication / Plan
-
dispo planning
Assessment / Plan
-
79 yo Croatian speaking female with a h/o cholecystectomy and sigmoidectomy (for diverticular dz) in [place], NIDDM and CAD (on plavix LD 11/25) who presented through the ED with significant RLQ pain worsening over the past 3 days with increasing
fatigue.
CT imaging reviewed with concern for diverticulitis in the TI with small amount of extraluminal air where the ileal wall is thickened. No abscess present.
Leukocytosis resolved on IV abx
Exams improved with resolution of symptoms
AFVSS
--Continue IV abx, would transition to PO upon d/c
--Tolerating LRD
--Ok to resume plavix
--Medical management as per primary team
Ok for d/c on LRD and on PO abx. She plans to return home to [place] on December 04, discussed follow up upon her return with gastroenterology which she is arranging.
Subjective Data
-
Date of Service: November 28, 2024
Patient seen and examined at bedside with Daughter interpreting. She is feeling much better. Diarrhea has resolved. Pain has resolved. Tolerating diet. No N/v
Objective Data
-
Intake and Output
11/27/24 11/28/24 11/29/24
06:59 06:59 06:59
Intake Total 240 / 240 3640 / 3640
Balance 240 / 240 3640 / 3640
Intake:
Oral fluids 240 / 240 1680 / 1680
IV fluids (Total) 1760 / 1760
IV piggybacks 200 / 200
Other:
Number of approximated MODERATE 3 4
amounts of urine
Vital Signs
Temp Pulse Resp BP Pulse Ox
98.4 F 84 16 179/81 96
11/28/24 03:00 11/28/24 07:57 11/28/24 07:57 11/28/24 07:57 11/28/24 08:00
Lab Results
11/28/24 07:37
11/28/24 07:37
Calcium 9.7 mg/dl (8.4-10.2) 11/28/24 07:37
Total Bilirubin 1.1 mg/dl (0.2-1.3) 11/25/24 18:58
AST 30 U/L (14-36) 11/25/24 18:58
ALT 20 U/L (0-35) 11/25/24 18:58
Alkaline Phosphatase 82 U/L (38-126) 11/25/24 18:58
Total Protein 6.4 g/dl (6.3-8.2) 11/25/24 18:58
Albumin 3.9 g/dl (3.5-5.0) 11/25/24 18:58
Physical Exam
-
NAD
ABD soft, nt, nd
Patient has a raza catheter: No
Patient has a central line: No
--- NOTE | 2024-11-28 11:01 | W.PN.HOSP.TC ---
Today's Communication/Plan
-
DC
Assessment / Plan
Assessment / Plan
A/P: Patient is a 79y F with PMH significant for ASCVD, HTN and diverticular disease who presents to ED complaining of abdominal pain x 3 days.
Acute right-sided diverticulitis
- CT scan done in the ED shows severe diverticulitis in the terminal ileum with some extraluminal air / microperf.
- Continued improvement with pain and normalized WBC . Tolerating low residue diet. Cleared by surgery for discharge. Transition to oral Augmentin to complete a 10-day course of antibiotic. Patient is going back to [place] on December 04 and
plans to follow-up with a GI physician down there. She was advised that she would require a colonoscopy in 6 weeks.
- Appt Surgery evaluation
Benign Hypertension
- Stable. cw PO medications .
ASCVD
- Stable. No prior [place] / stroke.
- History of carotid stenting.
- Continue ASA daily with known intravascular stent.
DM-II
- Stable. Hold metformin acutely.
- Follow glucose and cover with SSI as needed.
- Update A1C.
DVT Prophylaxis: SCDs
Code Status: Full
DC home today
Anticipated Discharge: Today
Subjective/Interval History
-
Date of Service: November 28, 2024
Daughter present at bedside and is the senior web designer as well.
Patient said that her abdominal pain is resolved. Tolerating solid diet and with that her loose stools have resolved as well. She says no nausea vomiting. No fever.
Objective Data
-
Labs:
Laboratory Results
11/28/24
07:37
WBC 6.9
Hgb 12.3
Hct 36.2 L
Plt Count 332
Sodium 140
Potassium 3.8
Chloride 105
Carbon Dioxide 25
BUN 9
Creatinine 0.5 L
Glucose 108 H
Calcium 9.7
Vital Signs:
Vital Signs
Temp Pulse Resp BP Pulse Ox
99.0 F 84 16 179/81 96
11/28/24 07:46 11/28/24 07:57 11/28/24 07:57 11/28/24 07:57 11/28/24 08:00
I&O
11/27/24 11/28/24 11/29/24
06:59 06:59 06:59
Intake Total 240 / 240 3640 / 3640
Balance 240 / 240 3640 / 3640
Review of Systems
-
Respiratory: Denies Trouble Breathing
Cardiac: Denies Chest Pain
Neuro: Denies Dizzy
Physical Exam
-
General: Comfortable
Respiratory: Non Labored Respirations; Negative Accessory Resp Muscle Use
GI: Soft, Nontender, Nondistended and Normal Bowel Sounds
Neuro: AO x 3
Data Reviewed
-
Labs: Labs Reviewed by me
[2024-11-28 11:25] VITALS: BP 171/79
--- NOTE | 2024-11-28 12:33 | CM ---
Patient discharged today
Spoke with daughter Ana regarding medical records needed for travel insurance.
Medical records form given to daughter & signed. daughter went to medical records today ([facility]) and will get medical records tomorrow.
Per [facility] from medical records they will not be ready until tomorrow since it is Friday
IMM explained & signed. In chart
PLAN: home, no needs
daughter to transport
== END 2024-11-28 12:35 | disposition home or self-care (01) | DRG 872 ==
LOC: 4 WEST ACU 23:55
PROVIDERS: Emergency Medicine; Physician Assistant; Registered Nurse; ADMITTING PHYSICIAN Hospitalist; ATTENDING PHYSICIAN Internal Medicine; EMERGENCY PHYSICIAN Student in an Organized Health Care Education/Training Program; OTHER PHYSICIAN Surgery
DX: A41.9 Sepsis, unspecified organism (principal); K57.00 Diverticulitis of small intestine with perforation and abscess without bleeding; Z11.52 Encounter for screening for COVID-19; I10 Essential (primary) hypertension; I25.10 Atherosclerotic heart disease of native coronary artery without angina pectoris; Z79.82 Long term (current) use of aspirin; E11.9 Type 2 diabetes mellitus without complications
CPT/HCPCS: 74176; 80048; 80053; 81003; 81015; 82962; 83036; 83605; 83690; 85025; 85027; 87086; 87502; 87811; 93005; 96361; 96365; 96375; 99285